=== PATIENT | male | born 1975 | race Caucasian/White ===

== ENCOUNTER 2017-12-09 21:11 | Inpatient (IN) ==
[2017-12-09] MEDS ORDERED: *HR* FentaNYL (PF) 100 MCG/2 ML VIAL IVP PRN (23:56)
[2017-12-09] MEDS ORDERED: Ondansetron 4 MG/2 ML VIAL IVP PRN (23:56)
[2017-12-09] MEDS ORDERED: *HR* Promethazine 25 MG/ML VIAL IVP PRN (23:56)
--- NOTE | 2017-12-10 00:19 | Internal Med History&Physical ---
<AlissaSavi - Last Filed: 12/10/17 01:20> Date of Encounter: 12/10/17 Time of Encounter: 00:16 Assessment and Plan (1) Abdominal pain Current visit: Yes Status: Acute 42-year-old male with GERD and history of 6-7 small bowel obstruction in past 5 years presenting with abdominal pain Patient also endorses diarrhea, suggestive that clinical presentation possibly due to partial bowel obstruction/ CT finding of ileal strictions may also be indicative of inflammatory bowel disease IVF hydration Continue gastric decompression with NG tube Monitoring of I/O Replete electrolytes, when necessary Pain management Begin coverage with broad-spectrum antibiotics - flagyl Serial abdominal exams Pt to remain NPO for Continued bowel rest CBC, BMP pending, C-diff pending Consult to surgery, we appreciate recs Consult to GI consult Qualifiers: Abdominal location: generalized Qualified Code(s): R10.84 - Generalized abdominal pain (2) Small bowel obstruction Current visit: Yes Status: Acute See above. (3) JOHANNA (acute kidney injury) Current visit: Yes Status: Acute Mild elevation of creatinine. IVF hydration Serial BMPs while inpatient (4) Depression Current visit: Yes Status: Acute Hold medications. Qualifiers: Depression Type: major depressive disorder Major depression recurrence: recurrent Active/Remission status: currently active Major depression episode severity: unspecified Qualified Code(s): F33.9 - Major depressive disorder, recurrent, unspecified (5) Tobacco abuse Current visit: Yes Status: Acute Pt active smoker. Encourage smoking cessation. Nicotine patch while inpatient. (6) DVT prophylaxis Current visit: Yes Status: Acute Stool guiac pending, with patient's report of possible melena. EPCD overnight. Internal Medicine - H&P: HPI Chief complaint: Abdominal pain, N/V Admitted From: Hospital to Hospital Transfer History of present illness: Mr. Toledo is a 42 year old male with history of GERD, depression and 6-7 partial small bowel obstruction over past 5 years presenting with diffuse abdominal pain x 2 days. Abdominal pain is relieved by emesis, but only for a short-term. Palpation of abdomen and walking worsens pain. Pt endorses passing flatus yesterday, but none today. Pt endorses passing 2 regular bowel movement yesterday, followed by recurrent episodes of loose stools. Stool was of regular consistency and brown and black- colored yesterday. Denies hematochezia. Associated symptoms: nausea and emesis, that is dark-colored but not bloody. Endorses weakness and diffuse body aches, chills, and weakness. Endorses increased urinary frequency, mild dysuria and darkened urine color. Denies fevers, chest pain or shortness of breath. Past SBOs did not require surgery. No history of abdominal surgery. Past Med Surg Social Fam HX - Past Medical History Medical history: GERD Psychiatric history: no psych history - Past Surgical History Surgical History: no surgical history - Social History Smoking Status: Current every day smoker Smokeless Tobacco Status: No Alcohol use: none Drug use: none - Family History Father Hx Family Cardiac Disorders: Yes ([place]) Internal Medicine - H&P: Meds Paroxetine HCl [Paxil] 20 mg PO BID 12/09/17 [History] 3 Allergy/AdvReac Type Severity Reaction Status Date / Time No Known Allergies Allergy Verified 12/09/17 23:48 All Systems PM: A 10-system review of systems was performed and is negative for pertinent findings except as documented above in the HPI. - Constitutional Constitutional: as per HPI - Respiratory Respiratory: as per HPI - Gastrointestinal Gastrointestinal: as per HPI - Genitourinary Genitourinary ROS male: as per HPI - Constitutional Vitals: Temp Pulse Resp BP Pulse Ox 99.4 F 99 16 133/78 94 12/09/17 23:00 12/09/17 23:00 12/09/17 23:00 12/09/17 23:00 12/09/17 23:00 General appearance: Present: cooperative, mild distress, A&O X 3 - Head Head exam: Present: atraumatic, normocephalic - Respiratory Respiratory exam: Present: CTAB, respiratory distress (shallow breathing 2/2 to pain ). Absent: accessory muscle use, chest wall tenderness - Cardiovascular Cardiovascular exam: Present: RRR, +S1, +S2 - GI/Abdominal GI/Abdominal exam: Present: normal bowel sounds, tenderness (diffusely). Absent : distended Additional comments: tympanic - Extremities Exam Extremities exam: Absent: cyanotic, pedal edema, tenderness Internal Med - H&P Results - Labs Labs: Outside hospital labs reviewed with attending UA remarkable for trace ketones, trace blood, positive for nitrates, negative leukocyte esterase, white count 3-5/hpf. Reflex culture indicated. CBC remarkable for WBC of 12.5, Hemoglobin of 18.8, hematocrit of 53.7 platelet of 205, absolute neutrophils of 10.8 CMP remarkable for sodium of 137, potassium of 4.5, chloride of 99, enzymatic CO2 24, BUNs of 18, creatinine 1.23, glucose of 144, calcium of 9.1, AST of 57, ALT of 61, alkaline phosphatase of 113, total bilirubin of 2.1, albumin of 4.3, GFR non- over 60 Lactic acid of 1.6 Lipase of 128 - EKG Data EKG comments: 11/09/17 EKG ED Sherie reviewed with attending Sinus tachycardia. Heart rate of 108. WA 121. QRS duration 89. QTC/QTC 314/ 412. - Impressions CT abdomen and pelvis with intravenous contrast outside hospital report reviewed 12/09/2017 6:56 PM - Copy of impression below. Full Copy of report in patient chart. Impression: 1. Findings consistent with high-grade small bowel obstruction with at least 2 regions of narrowing within the ileum at the lateral aspect of the right abdomen as described above 2. Normal appendix. 3. Additional nonacute/incidental findings as Above. Thank you for allowing us dissipated in the care of your patient Dictated and authenticated by: Brad Rincon M.D. <Braxton Merrill - Last Filed: 12/10/17 03:43> Date of Encounter: 12/10/17 Internal Medicine - H&P: HPI History of present illness: Mr. Toledo is a 42 year old male All Systems PM: A 10-system review of systems was performed and is negative for pertinent findings except as documented above in the HPI. - Constitutional Vitals: Temp Pulse Resp BP Pulse Ox 98.9 F 100 16 142/87 95 12/10/17 02:50 12/10/17 02:50 12/10/17 02:50 12/10/17 02:50 12/10/17 02:50 - Attending Attestation I examined this patient and my medical decision-making was reviewed with the Resident Physician Dr. Maxwell. I agree with the documented findings, disposition and treatment plan as described except to the extent set forth below. Mr. Toledo is a 42 year old male with history of GERD, depression and recurrent multiple SBO almost 6-7 in last 10 yrs, now he presented to [facility] ER with worsening abdominal pain, intractable nausea, vomiting and diarrhea. His CT of Abd showed a couple of narrow lesions in the ileum and high grade SBO. NG tube was palced in and pt was transferred to our hospital for further care Gen: Mild distress with pain Chest: Diminished BS b/l Abd: Soft, moderate tenderness in lower abdomen.. No guarding. Tympani note + A/p 1. Acute SBO 2. Acute intractable abd pain 3. Acute diarrhea Admit the pt into Med Surg does need higher level of care and reuiring high dose more frequent IV pain meds Cont NG tube Surgery and GI Consulted empirical abx Flagyl NPO IV hydration
[2017-12-10] MEDS ORDERED: Naloxone 0.4 MG/ML INJ IVP PRN (01:14)
[2017-12-10] MEDS: *HR* FentaNYL (PF) 100 MCG/2 ML VIAL IVP PRN ×5 (03:12→19:49)
[2017-12-10] MEDS: 0.9 % Sodium Chloride 1,000 ML IVC SCH ×2 (03:21→13:49)
[2017-12-10 06:29] LABS: Basophils % 0.4 %; Eosinophils % 0.2 %; Hematocrit 47.2 % (37.5-50.1); Immature Granulocytes % 0.5 % (0-4); Lymphocytes # 1.2 K/mcL (0.6-4.6); Lymphocytes % 14.3 %; Mean Corpuscular HGB Conc 33.9 g/dL (31.6-35.5); Mean Corpuscular Hemoglobin 30.9 pg (28.0-33.3); Mean Corpuscular Volume 91.3 fL (83.0-100.0); Mean Platelet Volume 10.8 fL (9.4-12.4); Monocytes # 0.7 K/mcL (0.0-1.3); Monocytes % 8.7 %; Neutrophils # 6.4 K/mcL (1.6-8.9); Platelet Count 172 K/mcL (140-400); Red Blood Count 5.17 M/mcL (4.19-5.50); Red Cell Distribution Width 12.9 % (11.5-14.5); Segmented Neutrophils % 75.9 %
[2017-12-10 06:57] LABS: Alanine Aminotransferase 40 Units/L (7-52); Albumin 3.5 g/dL (3.5-5.7); Albumin/Globulin Ratio 1.3 (1.1-2.2); Alkaline Phosphatase 80 Units/L (34-104); Aspartate Amino Transferase 58 Units/L (13-39); BUN/Creatinine Ratio 16 (6-26); Bilirubin,Direct 0.4 mg/dL (0.0-0.2); Bilirubin,Indirect 1.1 mg/dL (0.0-1.2); Bilirubin,Total 1.5 mg/dL (0.3-1.0); Blood Urea Nitrogen 15 mg/dL (6-20); Carbon Dioxide 24 mEq/L (23-29); Chloride 106 mEq/L (98-107); Globulin 2.7 g/dL (2.4-3.5); Glucose 132 mg/dL (70-105); Magnesium 1.9 mg/dL (1.6-2.6); Osmolality,Calculated 285 (280-300); Phosphorous 2.7 mg/dL (2.7-4.5); Potassium 3.7 mEq/L (3.5-5.1); Sodium 136 mEq/L (136-145); Total Protein 6.2 g/dL (6.4-8.9); eGFR For African Americans > 60 (> 60); eGFR For Non-African Americans > 60 (> 60)
[2017-12-10] MEDS: MetroNIDAZOLE 500 MG/100 ML 500 MG/100 ML BAG IVPB SCH ×2 (08:28→15:48)
[2017-12-10] MEDS: Nicotine 21 MG PATCH.TD24 TD SCH (08:29)
--- NOTE | 2017-12-10 08:47 | General Surgery Consult Note ---
<Alfonzo Bowie - Last Filed: 12/10/17 09:14> Date of Encounter: 12/10/17 Time of Encounter: 07:30 Assessment and Plan (1) Small bowel obstruction Current Visit: Yes Status: Acute CT report from [facility] ED shows findings consistent with high-grade small bowel obstruction with at least 2 regions of narrowing within the ileum at the lateral aspect of the right abdomen. NG tube was placed at 315 am this morning. Minimal drainage from NG on exam. Sounds present. Patient had multiple episodes of nonbloody diarrhea. No vomiting. Small bowel obstruction most likely secondary to ileus from small bowel enteric toxin or virus Plan: Discontinue the NG tube NPO for 6 hours. If patient has no nausea or vomiting, the patient can have a diet. Order XR of abdomen to follow up on SBO no surgical intervention at this time. Will follow clinically No small bowel follow through as long as patient has diarrhea continue to monitor the patient closely History of Present Illness Consult date: 12/10/17 Reason for consult: other (Bowel obstruction) History of present illness: Mr. Toledo is a 42 year old male with history of GERD, depression, and recurrent multiple SBO in the last 10 yrs who presented to [facility] ER with worsening abdominal pain, intractable nausea, vomiting, and diarrhea. The patient described his abdominal pain as a constant, diffuse, sharp pain that is worse with movement and walking and slightly improved with vomiting. Patient stated that his last bowel movement prior to coming to the ED was regular, soft , and nonbloody. He denies any hemataemesis. The patient admits he still has diarrhea that he describes as nonbloody. He stated he had 8-9 episodes of diarrhea last night. Surgery was consulted for small bowel obstruction according to CT of the abdomen and pelvis from outside hospital showing findings consistent with a high degree small bowel obstruction with at least 2 regions of narrowing within the ileum at the lateral aspect of the right abdomen. The patient states that his symptoms are similar to his previous small bowel obstructions. However, this time it appears to be more intense for him. He stated that there were no surgical interventions for his previous small bowel obstructions. He admits the NG tube placement improves his abdominal pain slightly. He admits some nausea at this time but no vomiting. The patient also admits that his abdomen feels distended and bloated and still complains of diffuse abdominal pain. The patient admits that his abdominal pain is better today compared to yesterday. He denies passing any flatus since his admission. The patient denies any fever, headaches, vision changes, near syncope, chest pain, difficulty breathing, constipation, urinary symptoms, and any weaknesses. Patient has no other concerns at this time. Past Med Surg Social Fam HX - Past Medical History Medical history: GERD Psychiatric history: no psych history - Past Surgical History Surgical History: no surgical history - Social History Smoking Status: Current every day smoker Smokeless Tobacco Status: No Alcohol use: none Drug use: none - Family History Father Hx Family Cardiac Disorders: Yes ([place]) Medications and Allergies Paroxetine HCl [Paxil] 20 mg PO BID 12/09/17 [History] 3 Allergy/AdvReac Type Severity Reaction Status Date / Time No Known Allergies Allergy Verified 12/10/17 10:36 Review of Systems All systems PM: The remainder of the systems were reviewed and are negative - Constitutional as per HPI General Surgery Exam Initial Vital Signs Temp Pulse Resp BP Pulse Ox 99.4 F 99 16 133/78 94 12/09/17 23:00 12/09/17 23:00 12/09/17 23:00 12/09/17 23:00 12/09/17 23:00 - General physical appearance well developed, no distress - Eyes PERRL, normal ocular movement - ENT normal mucosa - Neck trachea midline - Respiratory normal expansion, normal respiratory effort, clear to auscultation - Cardiovascular Cardiovascular exam: Present: RRR, no murmurs/rubs/gallops - Abdomen Abdomen general surgery: Present: bowel sounds present, soft, distended (Mildly distended), tender (Tender to palpation diffusely). Absent: guarding, rebound, rigid Abdominal Tenderness: Present: diffusely Hernia: Present: none - Integumentary Integumentary general surgery: Present: warm and dry, no abnormal pigmentation - Neurologic Present: CN 2-12 grossly intact - Psychiatric Psychiatric general surgery: Present: appropriate, oriented to person, oriented to place, oriented to time, speech is normal Exam Initial Vital Signs Temp Pulse Resp BP Pulse Ox 99.4 F 99 16 133/78 94 12/09/17 23:00 12/09/17 23:00 12/09/17 23:00 12/09/17 23:00 12/09/17 23:00 Results - Labs 04/04/18 05:56 12/10/17 05:56 Abnormal lab results Glucose 132 mg/dL (70-105) H 12/10/17 05:56 POC Glucose 126 mg/dL (68-89) H 12/10/17 05:19 Calcium 8.0 mg/dL (8.6-10.3) L 12/10/17 05:56 Total Bilirubin 1.5 mg/dL (0.3-1.0) H 12/10/17 05:56 Direct Bilirubin 0.4 mg/dL (0.0-0.2) H 12/10/17 05:56 AST 58 Units/L (13-39) H 12/10/17 05:56 Serum Total Protein 6.2 g/dL (6.4-8.9) L 12/10/17 05:56 Diabetes panel 12/10/17 Range/Units 05:56 Sodium 136 (136-145) mEq/L Potassium 3.7 (3.5-5.1) mEq/L Chloride 106 (98-107) mEq/L Carbon Dioxide 24 (23-29) mEq/L BUN 15 (6-20) mg/dL Creatinine 0.96 (0.70-1.30) mg/dL Glucose 132 H (70-105) mg/dL Calcium 8.0 L (8.6-10.3) mg/dL AST 58 H (13-39) Units/L ALT 40 (7-52) Units/L Alkaline Phosphatase 80 (34-104) Units/L Albumin 3.5 (3.5-5.7) g/dL Calcium panel 12/10/17 Range/Units 05:56 Calcium 8.0 L (8.6-10.3) mg/dL Phosphorus 2.7 (2.7-4.5) mg/dL Albumin 3.5 (3.5-5.7) g/dL Pituitary panel 12/10/17 Range/Units 05:56 Sodium 136 (136-145) mEq/L Potassium 3.7 (3.5-5.1) mEq/L Chloride 106 (98-107) mEq/L Carbon Dioxide 24 (23-29) mEq/L BUN 15 (6-20) mg/dL Creatinine 0.96 (0.70-1.30) mg/dL Glucose 132 H (70-105) mg/dL Calcium 8.0 L (8.6-10.3) mg/dL Adrenal panel 12/10/17 Range/Units 05:56 Sodium 136 (136-145) mEq/L Potassium 3.7 (3.5-5.1) mEq/L Chloride 106 (98-107) mEq/L Carbon Dioxide 24 (23-29) mEq/L BUN 15 (6-20) mg/dL Creatinine 0.96 (0.70-1.30) mg/dL Glucose 132 H (70-105) mg/dL Calcium 8.0 L (8.6-10.3) mg/dL Total Bilirubin 1.5 H (0.3-1.0) mg/dL AST 58 H (13-39) Units/L ALT 40 (7-52) Units/L Alkaline Phosphatase 80 (34-104) Units/L Albumin 3.5 (3.5-5.7) g/dL All other labs normal. Consult Discharge Plan - Plan Referrals: Larissa Russell CNP [Primary Care Provider] - <Khris Hanna - Last Filed: 12/10/17 14:04> Date of Encounter: 12/10/17 Review of Systems All systems PM: The remainder of the systems were reviewed and are negative General Surgery Exam Initial Vital Signs Temp Pulse Resp BP Pulse Ox 99.4 F 99 16 133/78 94 12/09/17 23:00 12/09/17 23:00 12/09/17 23:00 12/09/17 23:00 12/09/17 23:00 Exam Initial Vital Signs Temp Pulse Resp BP Pulse Ox 99.4 F 99 16 133/78 94 12/09/17 23:00 12/09/17 23:00 12/09/17 23:00 12/09/17 23:00 12/09/17 23:00 Results - Labs 12/10/17 05:56 12/10/17 05:56 Abnormal lab results Glucose 132 mg/dL (70-105) H 12/10/17 05:56 POC Glucose 126 mg/dL (68-89) H 12/10/17 05:19 Calcium 8.0 mg/dL (8.6-10.3) L 12/10/17 05:56 Total Bilirubin 1.5 mg/dL (0.3-1.0) H 12/10/17 05:56 Direct Bilirubin 0.4 mg/dL (0.0-0.2) H 12/10/17 05:56 AST 58 Units/L (13-39) H 12/10/17 05:56 Serum Total Protein 6.2 g/dL (6.4-8.9) L 12/10/17 05:56 Diabetes panel 12/10/17 Range/Units 05:56 Sodium 136 (136-145) mEq/L Potassium 3.7 (3.5-5.1) mEq/L Chloride 106 (98-107) mEq/L Carbon Dioxide 24 (23-29) mEq/L BUN 15 (6-20) mg/dL Creatinine 0.96 (0.70-1.30) mg/dL Glucose 132 H (70-105) mg/dL Calcium 8.0 L (8.6-10.3) mg/dL AST 58 H (13-39) Units/L ALT 40 (7-52) Units/L Alkaline Phosphatase 80 (34-104) Units/L Albumin 3.5 (3.5-5.7) g/dL Calcium panel 12/10/17 Range/Units 05:56 Calcium 8.0 L (8.6-10.3) mg/dL Phosphorus 2.7 (2.7-4.5) mg/dL Albumin 3.5 (3.5-5.7) g/dL Pituitary panel 12/10/17 Range/Units 05:56 Sodium 136 (136-145) mEq/L Potassium 3.7 (3.5-5.1) mEq/L Chloride 106 (98-107) mEq/L Carbon Dioxide 24 (23-29) mEq/L BUN 15 (6-20) mg/dL Creatinine 0.96 (0.70-1.30) mg/dL Glucose 132 H (70-105) mg/dL Calcium 8.0 L (8.6-10.3) mg/dL Adrenal panel 12/10/17 Range/Units 05:56 Sodium 136 (136-145) mEq/L Potassium 3.7 (3.5-5.1) mEq/L Chloride 106 (98-107) mEq/L Carbon Dioxide 24 (23-29) mEq/L BUN 15 (6-20) mg/dL Creatinine 0.96 (0.70-1.30) mg/dL Glucose 132 H (70-105) mg/dL Calcium 8.0 L (8.6-10.3) mg/dL Total Bilirubin 1.5 H (0.3-1.0) mg/dL AST 58 H (13-39) Units/L ALT 40 (7-52) Units/L Alkaline Phosphatase 80 (34-104) Units/L Albumin 3.5 (3.5-5.7) g/dL All other labs normal. - Attending Attestation I examined this patient and my medical decision-making was reviewed with the Resident Physician. I agree with the documented findings, disposition and treatment plan as described except to the extent set forth below. The patient is seen and evaluated on morning rounds with rest. CAT scan taken at an outside institution demonstrating small bowel obstruction is unavailable for review. The patient has normal bowel sounds on auscultation and is having active diarrhea at the time of examination. The nasogastric tube output is minimal. The patient clinically has intra-toxic or viral enteritis. This does not appear to be a mechanical small bowel obstruction. We will order acute abdominal series and follow patient clinically. I recommended removing the nasogastric tube. Khris Hanna MD FACS
--- NOTE | 2017-12-10 10:28 | Gastroenterology Consult Note ---
<Natalio Aceves - Last Filed: 12/10/17 16:04> Date of Encounter: 12/10/17 Time of Encounter: 10:25 - Assessment and plan (1) Small bowel obstruction Status: Acute Assessment and plan: CT report from [facility] ED shows findings consistent with high-grade small bowel obstruction with at least 2 regions of narrowing within the ileum at the lateral aspect of the right abdomen. Acute abdomen series revealed persistent small bowel obstruction. Gas is seen in the colon NG tube was placed at 0315 this morning yeilding minimal drainage. Discontinue the NG tube, surgery following NPO, advance diet as tolerated Repeat acute abdomen series pending Will follow (2) Norovirus Status: Acute Assessment and plan: [facility] informed us that his stool was positive for norovirus. Continue contact precautions and supportive care. - Time Spent With Patient Total time spent is greater than 50% in coordination of care (as documented) at patient's floor/unit and/or counseling patient: GI History of Present Illness - Data of Consult Patient: new to practice Consult date: 12/10/17 Requesting Physician: Patricia Plasencia MD - Consult Narrative Reason for consult: Multipe recurrent SBOs, possible Inflammatory Bowel Disease History of present illness: Mr. Toledo is a 42 year old male with a PMH of GERD and recurrent multiple SBO during the last 10 years who presented to [facility] ER c/o constant, diffuse, worsening abdominal pain, intractable nausea, vomiting, and diarrhea. Abdominal pain is worse with movement and improved after vomiting. Patient reports 8-9 episodes of non-bloody diarrhea prior to arrival. The patient states that his symptoms are similar to his previous small bowel obstructions. He denies fever, chills, headaches, chest pain, difficulty breathing, hemataemesis, flatus, urinary symptoms, vision changes, syncope, or weakness. GI was consulted for multipe recurrent SBOs, possible Inflammatory Bowel Disease. CT of the abdomen and pelvis from outside hospital showing findings consistent with a high degree small bowel obstruction with at least 2 regions of narrowing within the ileum at the lateral aspect of the right abdomen. Past Med Surg Social Fam HX - Past Medical History Medical history: GERD Psychiatric history: no psych history - Past Surgical History Surgical History: no surgical history - Social History Smoking Status: Current every day smoker Smokeless Tobacco Status: No Alcohol use: none Drug use: none - Family History Father Hx Family Cardiac Disorders: Yes ([place]) - Gastrointestinal Gastrointestinal: Present: abdominal pain, bloating, diarrhea, nausea, vomiting. Absent: constipation, heartburn, hematemesis, hematochezia, melena - Constitutional Constitutional: anorexia, fatigue, no weight gain, no weight loss - EENT Nose, mouth and throat: Absent: dysphagia, sore throat - Cardiovascular Cardiovascular ROS: Absent: chest pain, irregular heart rhythm, palpitations - Respiratory Respiratory IM: Absent: cough, dyspnea - Genitourinary Genitourinary: Absent: change in color, Urinary frequency - Neurological ROS Neurological GI: Present: weakness. Absent: confusion, dizziness, headache( s) - Hematologic/Lymphatic Hematologic/Lymphatic pediatric: Absent: as per HPI, easy bleeding - Integumentary Integumentary GI: Absent: jaundice, pruritis, rash - Psychiatric ROS Psychiatric GI: Absent: anxiety, depression - Constitutional Vitals: Temp Pulse Resp BP Pulse Ox 98.7 F 94 15 151/93 94 12/10/17 07:39 12/10/17 07:39 12/10/17 07:39 12/10/17 07:39 12/10/17 07:39 General appearance: Present: cooperative, A&O X 3, no acute distress, answers questions appropriately - Head Head exam: Present: atraumatic, normocephalic - Eye Eye exam: Present: normal appearance, sclera anicteric - ENT ENT exam: Present: mucous membranes dry, normal oropharynx - Neck Neck exam general surgery: Present: normal inspection, trachea midline - Respiratory Respiratory exam: Present: CTAB - Cardiovascular Cardiovascular exam: Present: RRR, +S1, +S2 - GI/Abdominal GI/Abdominal exam: Present: normal bowel sounds, soft, tenderness (diffuse), no peritoneal signs. Absent: guarding - Rectal Rectal exam: Present: deferred - Extremities Exam Extremities exam: Present: warm - Neurological Exam Neurological exam: Present: no focal deficits - Psychiatric Psychiatric exam: Present: normal affect, normal mood - Skin Skin exam: Present: dry, intact, normal color, warm Results - Labs CBC & Chem 7: 12/10/17 05:56 12/10/17 05:56 Labs: Last Result Calcium 8.0 mg/dL (8.6-10.3) L 12/10/17 05:56 Entire Visit Hgb 16.0 g/dL (12.9-16.9) 12/10/17 05:56 Hct 47.2 % (37.5-50.1) 12/10/17 05:56 Total Bilirubin 1.5 mg/dL (0.3-1.0) H 12/10/17 05:56 AST 58 Units/L (13-39) H 12/10/17 05:56 ALT 40 Units/L (7-52) 12/10/17 05:56 - Impressions Impressions Chest/Abdomen X-ray 12/10/17 07:35 IMPRESSION: Persistent small bowel obstruction. Gas is seen in the colon D/ / Nick Pederson MD / Nick Pederson MD Interpreting Provider: Nick Pederson MD Consult Discharge Plan - Plan Instructions: Gastroenteritis (DC) Referrals: Eunice Foster CNP [Advanced Practice Nurse] - 12/22/17 1:30 pm <Tra Reaves - Last Filed: 12/29/17 07:39> Date of Encounter: 12/10/17 - Time Spent With Patient Total time spent is greater than 50% in coordination of care (as documented) at patient's floor/unit and/or counseling patient: GI History of Present Illness - Data of Consult Requesting Physician: Patricia Plasencia MD - Consult Narrative History of present illness: Mr. Toledo is a 42 year old male - Constitutional Vitals: Temp Pulse Resp BP Pulse Ox 98.1 F 87 20 146/78 97 12/11/17 10:54 12/11/17 10:54 12/11/17 10:54 12/11/17 10:54 12/11/17 10:54 Results - Labs CBC & Chem 7: 12/10/17 05:56 12/10/17 05:56 Labs: Last Result Calcium 8.0 mg/dL (8.6-10.3) L 12/10/17 05:56 Stool Occult Blood Negative (Negative) 12/10/17 12:31 Entire Visit Hgb 16.0 g/dL (12.9-16.9) 12/10/17 05:56 Hct 47.2 % (37.5-50.1) 12/10/17 05:56 Total Bilirubin 1.5 mg/dL (0.3-1.0) H 12/10/17 05:56 AST 58 Units/L (13-39) H 12/10/17 05:56 ALT 40 Units/L (7-52) 12/10/17 05:56 - Attending Attestation Ms. Toledo is a pleasant 41-year-old male who comes in with diarrhea and CT scan was reviewed. He does have Norovirus on stool studies at [facility] patient closely a surgical consultation is already been obtained I examined this patient and my medical decision-making was reviewed with the Resident Physician. I agree with the documented findings, disposition and treatment plan as described except to the extent set forth below.
--- NOTE | 2017-12-10 13:50 | Event Note ---
Date of Encounter: 12/10/17 Time of Encounter: 10:50 Patient having bowel movements at this time. NG tube removed by surgery. Continues to have abdominal distention and pain. [facility] informed us that his Stool was positive for norovirus. Will place him on contact precautions. Continue supportive care. Acute kidney injury has resolved. Continue IV hydration. Keep nothing by mouth.
[2017-12-10 14:15] LABS: Bilirubin,Urine Negative (Negative); Blood,Urine Moderate (Negative); Clarity,Urine Clear (Clear); Color,Urine Dark Yellow (Yellow); Glucose,Urine (UA) Normal (Normal); Ketones,Urine 15 mg/dL (Negative); Leukocyte Esterase,Urine Negative (Negative); Nitrite,Urine Negative (Negative); Protein,Urine Negative (Neg-Trace); Specific Gravity,Urine 1.028 (1.010-1.025); Urobilinogen,Urine Normal (Normal)
[2017-12-10 14:23] LABS: Bacteria,Urine None Seen per hpf (None-Few); Hyaline Casts,Urine None Seen per lpf (None-Few); RBC,Urine 15-30 per hpf (0-3); Squamous Epithelial Cell,Urine Moderate per lpf (None-Few); WBC,Urine 0-3 per hpf (0-3)
[2017-12-10] MEDS: *HR* OxyCODONE/APAP 5/325 TABLET PO PRN (23:09)
[2017-12-11] MEDS: MetroNIDAZOLE 500 MG/100 ML 500 MG/100 ML BAG IVPB SCH ×2 (00:09→09:46)
--- NOTE | 2017-12-11 07:20 | General Surgery Progress Note ---
<Alfonzo Bowie - Last Filed: 12/11/17 08:19> Date of Encounter: 12/11/17 Time of Encounter: 06:45 - Assessment and Plan (1) Small bowel obstruction Status: Acute CT report from [facility] ED shows findings consistent with high-grade small bowel obstruction with at least 2 regions of narrowing within the ileum at the lateral aspect of the right abdomen. NG tube was placed at 315 am this morning. Minimal drainage from NG on exam. Sounds present. Patient had multiple episodes of nonbloody diarrhea. No vomiting. Small bowel obstruction most likely secondary to ileus from small bowel enteric toxin or virus Plan: [facility] informed our hospital that his stool was positive for norovirus. Continue contact precautions Advanced diet as tolerated No surgical intervention at this time. No small bowel follow through as long as patient has diarrhea GI on board per primary team Surgery will sign off at this time. Thank you for allowing Surgery to participate in this patient's care. Subjective Patient reports: no new complaints, still having pain (Patient admits he still has abdominal pain that is a 8/10 but stated that it is better than yesterday. ), no flatus, diarrhea (Patient admits multiple episodes of diarrhea that he describes as nonbloody. Last episode was approximately a couple of hours ago.), fever (Patient stated that he was febrile overnight.), other (Patient appears comfortable and appears in no acute distress. He stated that he know he has the norovirus.) Objective Vital Signs - Last 8 Hours Temp Pulse Resp BP Pulse Ox 12/11/17 03:30 97.6 F 77 16 128/77 95 12/11/17 00:10 99.2 F 98 18 138/92 95 Intake and Output 12/10/17 12/10/17 12/11/17 15:59 23:59 07:59 Intake Total 1100 / 1100 100 / 100 100 / 100 Output Total 0 / 0 0 / 0 Balance 1100 / 1100 100 / 100 100 / 100 Intake: IV Fluids 1100 / 1100 100 / 100 100 / 100 0.9 % Sodium Chloride 1,000 ML 1000 / 1000 @ 125 mls/hr IVC .Q8H MARIZOL Rx#: [id number] Flagyl Premix 500 MG/100 ML 500 100 / 100 100 / 100 100 / 100 mg In 100 ml @ 100 mls/hr IVPB Q8HR MARIZOL Rx#:[id number] Oral 0 / 0 0 / 0 Output: Urine 0 / 0 0 / 0 Other: Meal NPO Stool Size Moderate Stool Consistency liquid Stool Color Brown # Voids 1 # Bowel Movements 1 Weight 92.986 kg Blood Glucose* 103 Patient Weight 12/11/17 23:59 Weight 92.986 kg - General physical appearance well developed, no distress - Eyes PERRL, normal ocular movement - ENT normal mucosa - Neck Neck exam: trachea midline - Respiratory normal expansion, normal respiratory effort, clear to auscultation - Cardiovascular Cardiovascular exam: Present: RRR, no murmurs/rubs/gallops - Abdomen Abdomen: Present: bowel sounds present, soft, distended (Mildly distended but no change from yesterday's exam), tender (Minimal tenderness to palpation). Absent: guarding, rebound, rigid Abdominal Tenderness: diffusely - Integumentary no rash - Neurologic CN 2-12 grossly intact - Psychiatric oriented to time, oriented to person, oriented to place - Labs 12/10/17 05:56 12/10/17 05:56 Consult Discharge Plan - Plan Instructions: Gastroenteritis (DC) Referrals: Eunice Foster, UNDERWRITER SOLICITATION DIRECTOR [Advanced Practice Nurse] - 12/22/17 1:30 pm <Khris Hanna - Last Filed: 12/12/17 08:05> Date of Encounter: 12/11/17 Objective - Labs 12/10/17 05:56 12/10/17 05:56 - Attending Attestation I examined this patient and my medical decision-making was reviewed with the Resident Physician. I agree with the documented findings, disposition and treatment plan as described except to the extent set forth below. The patient was seen and evaluated with the resident on morning rounds. He appears to have entero-toxic small bowel injury. This should resolve with adequate hydration. No evidence of mechanical obstruction. We will sign off Khris Hanna MD FACS
[2017-12-11] MEDS: Nicotine 21 MG PATCH.TD24 TD SCH (09:45)
[2017-12-11] MEDS: *HR* OxyCODONE/APAP 5/325 TABLET PO PRN (09:46)
--- NOTE | 2017-12-11 10:00 | Discharge Summary ---
- NOTES TO OUTPATIENT PROVIDER Notes to Outpatient Provider: Patient treated for partial small bowel obstruction and norovirus infection. Date of Encounter: 12/11/17 Time of Encounter: 08:30 - Discharge Diagnosis (1) Abdominal pain Priority: Primary Status: Resolved Qualifiers: Abdominal location: generalized Qualified Code(s): R10.84 - Generalized abdominal pain (2) JOHANNA (acute kidney injury) Priority: Secondary Status: Resolved (3) DVT prophylaxis Priority: Secondary Status: Acute (4) Norovirus Priority: Secondary Status: Acute (5) Small bowel obstruction Priority: Secondary Status: Resolved (6) Tobacco abuse Priority: Secondary Status: Acute Hospital course: Mr. Toledo is a 42 year old male patient with history of gastroesophageal reflux disease, depression, prior episodes of partial small bowel obstruction who was hospitalized here after presenting with episodes of abdominal pain along with nausea and vomiting. Initial CT scan showed possible small bowel obstruction. As such NG tube was placed and surgery was consulted. His symptoms improved since then and patient continued to have frequent bowel movements. X-ray done yesterday of his abdomen continued to show small bowel distention with scattered air-fluid levels. However as patient Had been having bowel movements, NG tube was removed. He has not had any episodes of nausea and vomiting since then. His stools were positive for norovirus. This appears to be the cause of his symptoms. Presently he is tolerating oral diet well. He feels much better although he has continued to have diarrhea. He wishes to go home. I do not see any other reason to keep him in the hospital at this time as long as he is tolerating oral diet and is no longer having abdominal pain. He is advised to continue keeping himself hydrated while he recovers from norovirus. Discharge discussed with: patient - Time Spent with Patient Total time spent providing and/or coordinating discharge services: Less than 30 minutes (20 min) - Discharge Medications Home Medications: Paroxetine HCl [Paxil] 20 mg PO BID 12/09/17 [History] Allergies/Adverse Reactions: 3 Allergy/AdvReac Type Severity Reaction Status Date / Time No Known Allergies Allergy Verified 12/10/17 10:36 Date of admission: 12/10/17 03:54 Primary care physician: Larissa Russell, Consults: 12/10/17 01:44 Consult to Gastroenterology [CONS] Routine Consulting Provider: [facility] Reason for Consult: Multipe recurrent SBOs, possible Inflammatory Bowel Disease Call Completed: No Consult to Surgery [CONS] Routine Consulting Provider: [facility] Reason for Consult: Navi Hanna MD notified by [facility] ED. Small bowel obstruction Call Completed: Yes Discharging clinician: Patricia Plasencia Anticipated date of discharge: 12/11/17 - Constitutional Vitals: Temp Pulse Resp BP Pulse Ox 98.5 F 84 15 125/82 96 12/11/17 07:52 12/11/17 07:52 12/11/17 07:52 12/11/17 07:52 12/11/17 07:52 General appearance: Present: cooperative, A&O X 3, no acute distress, answers questions appropriately - Respiratory Respiratory exam: Present: CTAB. Absent: accessory muscle use, rales, rhonchi, wheezes - Cardiovascular Cardiovascular exam: Present: RRR, +S1, +S2. Absent: diastolic murmur, gallop, rubs, systolic murmur - GI/Abdominal GI/Abdominal exam: Present: normal bowel sounds, soft, no peritoneal signs. Absent: distended, tenderness - Extremities Exam Extremities exam: Present: warm, radial pulses palpable and symmetrical. Absent : calf tenderness, cyanotic, pedal edema - Patient Status Disposition: Home, Self-Care Condition: Good Functional capacity at discharge: independent ambulation Overall status at discharge: patient is progressing back to baseline - Discharge Instructions Instructions: Gastroenteritis (DC) Follow Up With: Larissa Russell CNP [Primary Care Provider] - (in 1 week) - Diet and Activity Activity: increase activity as tolerated Diet: advance to your usual diet
--- NOTE | 2017-12-11 10:14 | Gastroenterology Progress Note ---
<Natalio Aceves - Last Filed: 12/11/17 10:12> Date of Encounter: 12/11/17 Time of Encounter: 10:12 - Assessment and plan (1) Small bowel obstruction Status: Resolved Assessment and plan: CT report from [facility] shows findings consistent with high-grade small bowel obstruction with at least 2 regions of narrowing within the ileum at the lateral aspect of the right abdomen. Acute abdomen series revealed persistent small bowel obstruction. Gas is seen in the colon NG tube was placed at 0315 this morning yeilding minimal drainage. Discontinue the NG tube, surgery following Patient reports tolerating PO intake and having bowel movements Advance diet as tolerated Stable for discharge from a GI perspective (2) Norovirus Status: Acute Assessment and plan: [facility] informed us that his stool was positive for Norovirus. No need for antibiotics. Continue contact precautions and supportive care. - Time Spent With Patient Total time spent is greater than 50% in coordination of care (as documented) at patient's floor/unit and/or counseling patient: - Subjective Interval history: Patient seen and examined. Patient reports tolerating PO intake and is eager to go home today. Family is at bedside. - Constitutional Vitals: Temp Pulse Resp BP Pulse Ox 98.5 F 84 15 125/82 96 12/11/17 07:52 12/11/17 07:52 12/11/17 07:52 12/11/17 07:52 12/11/17 07:52 General appearance: Present: cooperative, A&O X 3, no acute distress, obese, answers questions appropriately - Head Head exam: Present: atraumatic, normocephalic - Eye Eye exam: Present: normal appearance, sclera anicteric - ENT ENT exam: Present: mucous membranes moist, normal oropharynx - Neck Neck exam general surgery: Present: normal inspection, trachea midline - Respiratory Respiratory exam: Present: CTAB - Cardiovascular Cardiovascular exam: Present: RRR, +S1, +S2 - GI/Abdominal GI/Abdominal exam: Present: normal bowel sounds, soft, tenderness, no peritoneal signs. Absent: guarding - Rectal Rectal exam: Present: deferred - Extremities Exam Extremities exam: Present: warm. Absent: pedal edema - Neurological Exam Neurological exam: Present: oriented X3, no focal deficits - Psychiatric Psychiatric exam: Present: normal affect, normal mood - Skin Skin exam: Present: dry, intact, normal color, warm Results - Labs CBC & Chem 7: 12/10/17 05:56 12/10/17 05:56 Labs: Last Result Calcium 8.0 mg/dL (8.6-10.3) L 12/10/17 05:56 Stool Occult Blood Negative (Negative) 12/10/17 12:31 Entire Visit Hgb 16.0 g/dL (12.9-16.9) 12/10/17 05:56 Hct 47.2 % (37.5-50.1) 12/10/17 05:56 Total Bilirubin 1.5 mg/dL (0.3-1.0) H 12/10/17 05:56 AST 58 Units/L (13-39) H 12/10/17 05:56 ALT 40 Units/L (7-52) 12/10/17 05:56 Consult Discharge Plan - Plan Instructions: Gastroenteritis (DC) Referrals: Eunice Foster THREAD MARKER [Advanced Practice Nurse] - 12/22/17 1:30 pm <Tra Reaves - Last Filed: 12/29/17 07:48> Date of Encounter: 12/11/17 - Time Spent With Patient Total time spent is greater than 50% in coordination of care (as documented) at patient's floor/unit and/or counseling patient: - Constitutional Vitals: Temp Pulse Resp BP Pulse Ox 98.1 F 87 20 146/78 97 12/11/17 10:54 12/11/17 10:54 12/11/17 10:54 12/11/17 10:54 12/11/17 10:54 Results - Labs CBC & Chem 7: 12/10/17 05:56 12/10/17 05:56 Labs: Last Result Calcium 8.0 mg/dL (8.6-10.3) L 12/10/17 05:56 Stool Occult Blood Negative (Negative) 12/10/17 12:31 Entire Visit Hgb 16.0 g/dL (12.9-16.9) 12/10/17 05:56 Hct 47.2 % (37.5-50.1) 12/10/17 05:56 Total Bilirubin 1.5 mg/dL (0.3-1.0) H 12/10/17 05:56 AST 58 Units/L (13-39) H 12/10/17 05:56 ALT 40 Units/L (7-52) 12/10/17 05:56 - Attending Attestation I examined this patient and my medical decision-making was reviewed with the Resident Physician. I agree with the documented findings, disposition and treatment plan as described except to the extent set forth below.
[2017-12-11 11:01] VITALS: BP 146/78
[2017-12-11] MEDS: *HR* FentaNYL (PF) 100 MCG/2 ML VIAL IVP PRN (13:03)
== END 2017-12-11 13:20 | disposition home or self-care (01) | DRG 392 ==
LOC: 3ANU → SUATTDRO 12-10 03:54
PROVIDERS: ADMIT Family Medicine; ATTEND Internal Medicine